=== PATIENT | female | born 1930 | race Asian ===

== ENCOUNTER 2017-08-24 19:07 | Inpatient (IN) | payer OTHER ==
--- NOTE | 2017-08-24 19:18 | EDPHY ---
H & P Time Seen by Provider: 08/24/17 19:08 HPI/ROS: CHIEF COMPLAINT: Syncope, vomiting HISTORY OF PRESENT ILLNESS: This patient is a Belgian-speaking 86 y/o female arriving via EMS with her family following a syncopal episode. This evening, she was eating dinner and began to slump over then fell slowly to the floor from sitting. She did not strike her head. After waking, she vomited. Per EMS report, the patient vomited once more en route. The patient's daughter states the patient complained of fatigue all day today. She is generally on home oxygen in the mornings for hypoxemia of unknown etiology. The patient did have a similar episode three years ago in [place], but her family is unsure what the cause of this was. No recent illness, diarrhea, abdominal pain, chest pain, SOB, urinary complaints, or other associated symptoms. HPI obtained primarily from daughter at bedside, patient is Belgian-speaking only. REVIEW OF SYSTEMS: A 10 point review of systems was performed and is negative with the exception of the elements mentioned in the history of present illness. Past Medical/Surgical History: Asthma Chronic hypoxia, uses home O2 in the mornings Constipation Social History: Family at bedside. Belgian-speaking only. Recently moved to [place]. Physical Exam: General Appearance: Pale, eyes closed, alert Eyes: Pupils equal and round, conjunctival pallor ENT, Mouth: Mucous membranes moist Neck: Normal inspection Respiratory: Rales at bases bilaterally Cardiovascular: Regular rate and rhythm Gastrointestinal: Abdomen is soft and non-tender Neurological: Alert, oriented x3, cranial nerves II through XII intact, motor 5 /5, sensory intact to light touch Skin: Warm and dry Extremities: Normal inspection Psychiatric: Mood and affect normal per family Constitutional: Initial Vital Signs Temperature (C) 36.6 C 08/24/17 19:15 Heart Rate 70 08/24/17 19:15 Respiratory Rate 16 08/24/17 19:15 Blood Pressure 160/82 H 08/24/17 19:15 O2 Sat (%) 93 08/24/17 19:15 O2 Delivery Mode Ventilator O2 (L/minute) 10 Allergies/Adverse Reactions: No Known Allergies Allergy (Unverified 08/24/17 19:25) Home Medications: Medication Instructions Recorded Albuterol [Proventil Inhaler HFA 1 puffs IH Q6HRS PRN 08/24/17 (*)] Ascorbic Acid [Vitamin C 500 mg 1,000 mg PO DAILY 08/24/17 (*)] Beclomethasone Qvar 80 [Qvar 80 1 puffs IH BID 08/24/17 (*)] Docusate Sodium [Colace 100 MG (*)] 100 mg PO BID 08/24/17 Herbals/Supplements -Info Only 1 ea PO AD 08/24/17 Loratadine [Claritin 10 mg] 10 mg PO DAILY 08/24/17 Polyethylene Glycol 3350 [Miralax 17 gm PO DAILY PRN 08/24/17 17 gm (*)] Medical Decision Making - Diagnostics Imaging: I viewed and interpreted images myself ED Course/Re-evaluation: This patient presents with a true syncopal episode, followed by vomiting. Stat EKG reveals a first-degree AV block, without signs of ischemia. Physical exam reveals a normal neurologic exam; there is no evidence of TIA/CVA. More concerning for dysrhythmia. 19:30 as I was interviewing the patient, she began feeling nauseated. She then started vomiting. I looked up at the monitor and her heart rate was in the low 30s. The bradycardia was transient and after the bradycardia resolved, the nausea and vomiting resolved. Blood pressure adequate after the episode. Pacer pads were placed. She was moved to room 2 for closer observation. Repeat EKG is relatively unchanged from initial EKG. Plan for labs including CBC , BMP, Troponin. 19:[address] Blount, hospitalist. He accepts admission to PCU for symptomatic bradycardia. 19:[address] Guillermo, business and marketing teacher. She will consult the patient. Troponin negative. Chest x-ray negative for acute processes, see radiologist report above. 20:48 The patient complained of left shoulder and hip pain to her daughter. Reviewed chest x-ray. No evidence of acute osseous abnormalities. X-ray left hip negative. Differential Diagnosis: Differential diagnosis includes though is not limited to cardiac dysrhythmia, CVA, TIA, GI bleed, sepsis, hypoglycemia. Critical Care Time: I spent a total of 35 minutes of critical care time in obtaining history, performing a physical exam, bedside monitoring of interventions, collecting and interpreting tests and discussion with consultants but not including time spent performing procedures. - Data Points Laboratory Results: Laboratory Results 08/25/17 06:15 01/01/18 06:15 Medications Given: Discontinued Medications Ascorbic Acid (Vitamin C) 1,000 mg PO DAILY [facility] Stop: 02/21/18 08:59 Last Admin: 08/25/17 11:59 Dose: Not Given Beclomethasone Dipropionate (Qvar 80) 1 puffs IH BID [facility] Stop: 02/20/18 20:59 Last Admin: 08/25/17 09:05 Dose: Not Given Docusate Sodium (Colace) 100 mg PO BID [facility] Stop: 02/20/18 20:59 Last Admin: 08/25/17 11:59 Dose: Not Given Etomidate (Etomidate) 34 mg IV ONCE ONE Stop: 08/25/17 10:31 Last Admin: 08/25/17 09:40 Dose: 34 mg Sodium Chloride (Ns) 1,000 mls @ 0 mls/hr IV EDNOW ONE; Wide Open PRN Reason: Protocol Stop: 08/24/17 19:20 Last Admin: 08/24/17 19:29 Dose: 1,000 mls Midazolam HCl (Versed) 1 mg IVP ONCE ONE Stop: 08/25/17 10:01 Last Admin: 08/25/17 12:00 Dose: Not Given Midazolam HCl (Versed) 1 mg IVP ONCE ONE Stop: 08/25/17 10:31 Last Admin: 08/25/17 09:40 Dose: 1 mg Ondansetron HCl (Zofran) 4 mg IVP Q4 PRN PRN Reason: Nausea/Vomiting, Can't Take PO Stop: 02/20/18 20:54 Last Admin: 08/25/17 04:45 Dose: 4 mg Departure - Departure Disposition: [facility] Acute Clinical Impression: Symptomatic bradycardia Syncope Qualifiers: Syncope type: unspecified Qualified Code(s): R55 - Syncope and collapse Condition: Serious Report Scribed for: Gladis Nino Report Scribed by: Minerva Reddy Date of Report: 08/24/17 Time of Report: 19:26 Physician Review and Approval Statement: 08/24/17 19:26 Portions of this note were transcribed by a emergency medical services coordinator. I personally performed a history, physical exam, medical decision making, and confirmed accuracy of information the transcribed note.
[2017-08-24] MEDS ORDERED: NS 1,000 ML IV ONE (19:19)
--- NOTE | 2017-08-24 19:20 | CPEKG ---
Heart Rate: 70 RR Interval: 857 P-R Interval: 268 QRSD Interval: 132 QT Interval: 448 QTC Interval: 484 P [place]: 210 QRS [place]: -9 T Wave [place]: 17 EKG Severity - ABNORMAL ECG - EKG Impression: SINUS OR ECTOPIC ATRIAL RHYTHM EKG Impression: FIRST DEGREE AV BLOCK EKG Impression: IVCD, CONSIDER ATYPICAL RBBB Electronically Signed By: Gil Morin 25-Aug-2017 10:31:39
[2017-08-24 19:29] LABS: PLATELET COUNT 137 10^3/uL (150-400)
--- NOTE | 2017-08-24 19:39 | CPEKG ---
Heart Rate: 73 RR Interval: 822 P-R Interval: 308 QRSD Interval: 132 QT Interval: 452 QTC Interval: 499 P [place]: 251 QRS [place]: -16 T Wave [place]: -33 EKG Severity - ABNORMAL ECG - EKG Impression: SINUS OR ECTOPIC ATRIAL RHYTHM EKG Impression: FIRST DEGREE AV BLOCK EKG Impression: RIGHT BUNDLE BRANCH BLOCK Electronically Signed By: Gil Morin 25-Aug-2017 10:33:40
--- NOTE | 2017-08-24 20:50 | PDGENHP ---
History and Physical - Chief Complaint Syncope - History of Present Illness This 86-year-old [place] Islander female who moved to [place] from [facility] 1-[place]/2 years ago presented to the hospital today after having a syncopal episode. Patient was eating dinner with her family when she lost consciousness and softly fell to the floor. She was out for 1-2 minutes per family. She vomited after waking up. She had a similar episode about 3 years ago while in [facility]. While in the emergency department the patient had another episode of bradycardia which was also associated with nausea vomiting. During the time my exam the patient denies any chest pain. She does have some pain in her back. History Information - Allergies/Home Medication List Allergies/Adverse Reactions: No Known Allergies Allergy (Unverified 08/24/17 19:25) Home Medications: Albuterol [Proventil Inhaler HFA (*)] 1 puffs IH Q6HRS PRN 08/24/17 [Last Taken Unknown] Ascorbic Acid [Vitamin C 500 mg (*)] 1,000 mg PO DAILY 08/24/17 [Last Taken ] Beclomethasone Qvar 80 [Qvar 80 (*)] 1 puffs IH BID 08/24/17 [Last Taken ] Docusate Sodium [Colace 100 MG (*)] 100 mg PO BID 08/24/17 [Last Taken 08/24/17] Herbals/Supplements -Info Only 1 ea PO AD 08/24/17 [Last Taken Unknown] Loratadine [Claritin 10 mg] 10 mg PO DAILY 08/24/17 [Last Taken 08/24/17] Polyethylene Glycol 3350 [Miralax 17 gm (*)] 17 gm PO DAILY PRN 08/24/17 [Last Taken 08/24/17] I have personally reviewed and updated: family history, medical history, social history, surgical history - Past Medical History Additional medical history: Breast cancer, colon cancer, hypertension - Surgical History Additional surgical history: Lumpectomy, colon resection - Family History Additional family history: Reviewed and noncontributory - Social History Smoking Status: Never smoked Alcohol Use: Rarely (small glass of champagne with dinner) Drug Use: None Review of Systems Review of Systems: ROS: 10pt was reviewed & negative except for what was stated in HPI & below Physical Exam Physical Exam: Temp Pulse Resp BP Pulse Ox 36.6 C 64 20 139/68 H 96 08/24/17 19:15 08/24/17 20:26 08/24/17 20:26 08/24/17 20:26 08/24/17 20:26 O2 (L/minute) 2 Constitutional: no apparent distress, appears nourished, not in pain Eyes: PERRL, anicteric sclera, EOMI Ears, Nose, Mouth, Throat: moist mucous membranes, hearing normal, ears appear normal, no oral mucosal ulcers Cardiovascular: regular rate and rhythym, no murmur, rub, or gallop, No edema Respiratory: no respiratory distress, no rales or rhonchi, clear to auscultation Gastrointestinal: normoactive bowel sounds, soft, non-tender abdomen, no palpable masses Genitourinary: no bladder fullness, no bladder tenderness Skin: warm, normal color, no rashes or abrasions, no fluctuance, no induration, No mottled Musculoskeletal: full muscle strength, no muscle tenderness, normal joint ROM, no joint effusions Neurologic: AAOx3, CN II-XII Intact, No facial droop Psychiatric: interacting appropriately, not anxious, not encephalopathic, thought process linear Lymph, Heme, Immunologic: no cervical LAD, no supraclavicular LAD Lab Data & Imaging Review 08/24/17 19:21 08/24/17 19:21 WBC 9.08 10^3/uL (3.80-9.50) 08/24/17 19:21 RBC 4.60 10^6/uL (4.18-5.33) 08/24/17 19:21 Hgb 15.0 g/dL (12.6-16.3) 08/24/17 19:21 Hct 45.6 % (38.0-47.0) 08/24/17 19:21 MCV 99.1 fL (81.5-99.8) 08/24/17 19:21 MCH 32.6 pg (27.9-34.1) 08/24/17 19:21 MCHC 32.9 g/dL (32.4-36.7) 08/24/17 19:21 RDW 12.8 % (11.5-15.2) 08/24/17 19:21 Plt Count 137 10^3/uL (150-400) L 08/24/17 19:21 MPV 9.6 fL (8.7-11.7) 08/24/17 19:21 Neut % (Auto) 53.0 % (39.3-74.2) 08/24/17 19:21 Lymph % (Auto) 38.7 % (15.0-45.0) 08/24/17 19:21 [place] % (Auto) 5.5 % (4.5-13.0) 08/24/17 19:21 Eos % (Auto) 2.0 % (0.6-7.6) 08/24/17 19:21 Baso % (Auto) 0.4 % (0.3-1.7) 08/24/17 19:21 Nucleat RBC Rel Count 0.0 % (0.0-0.2) 08/24/17 19:21 Absolute Neuts (auto) 4.81 10^3/uL (1.70-6.50) 08/24/17 19:21 Absolute Lymphs (auto) 3.51 10^3/uL (1.00-3.00) H 08/24/17 19:21 Absolute Monos (auto) 0.50 10^3/uL (0.30-0.80) 08/24/17 19:21 Absolute Eos (auto) 0.18 10^3/uL (0.03-0.40) 08/24/17 19:21 Absolute Basos (auto) 0.04 10^3/uL (0.02-0.10) 08/24/17 19:21 Absolute Nucleated RBC 0.00 10^3/uL (0-0.01) 08/24/17 19:21 Immature Gran % 0.4 % (0.0-1.1) 08/24/17 19:21 Immature Gran # 0.04 10^3/uL (0.00-0.10) 08/24/17 19:21 Sodium 141 mEq/L (134-144) 08/24/17 19:21 Potassium 4.1 mEq/L (3.5-5.2) 08/24/17 19:21 Chloride 106 mEq/L (97-110) 08/24/17 19:21 Carbon Dioxide 25 mEq/l (22-31) 08/24/17 19:21 Anion Gap 10 mEq/L (8-16) 08/24/17 19:21 BUN 18 mg/dL (7-23) 08/24/17 19:21 Creatinine 1.0 mg/dL (0.6-1.0) 08/24/17 19:21 Estimated GFR 52 08/24/17 19:21 Glucose 109 mg/dL (70-100) H 08/24/17 19:21 Calcium 9.5 mg/dL (8.5-10.4) 08/24/17 19:21 Troponin I < 0.012 ng/mL (0.000-0.034) 08/24/17 19:21 Visualized and Interpreted Chest x-ray results: Yes Chest X-Ray results: no infiltrate, normal, other (Borderline cardiomegaly) Visualized and Interpreted EKG results: Yes EKG additional interpertation: Sinus rhythm rate 73 beats per minute with first- degree AV block and right bundle branch block Assessment & Plan Assessment: This 86-year-old female presenting with: # syncope differential diagnosis includes vasovagal versus sick sinus syndrome/ symptomatic bradycardia -patient will be closely monitored on telemetry with atropine at bedside. Dr. Juliane Guillermo with [facility] has been consulted. -trend troponin -echocardiogram # history of hypertension -she does not appear to be on anti hypertension medications at this time. Will monitor blood pressure Placed in observation for now. Hospital course will depend on further workup.
[2017-08-24] MEDS ORDERED: ALBUTEROL 200 PUFFS/18 GM MDI IH PRN (20:54)
[2017-08-24] MEDS ORDERED: ONDANSETRON 4 MG/2 ML VIAL IVP PRN (20:55)
[2017-08-24] MEDS ORDERED: ACETAMINOPHEN 325 MG TAB PO PRN (20:55)
[2017-08-24] MEDS: BECLOMETHASONE QVAR 80 MDI IH SCH (23:02)
[2017-08-24] MEDS: DOCUSATE SODIUM 100 MG CAP PO SCH (23:34)
[2017-08-25 06:28] LABS: PLATELET COUNT 117 10^3/uL (150-400)
[2017-08-25] MEDS ORDERED: IOPAMIDOL (ISOVUE 370) 100 ML BTL IV ONE (08:44)
[2017-08-25] MEDS ORDERED: ASCORBIC ACID 500 MG TAB PO SCH (09:00)
[2017-08-25] MEDS: BECLOMETHASONE QVAR 80 MDI IH SCH (09:05)
--- NOTE | 2017-08-25 09:13 | GCON ---
[f rep st] CONSULTATION Bradycardia. HISTORY OF PRESENT ILLNESS: The patient came into the hospital last night and had been complaining o f syncope. She had had syncope 3 weeks ago and then had a syncopal episode on the day of admission. She was eating with her family according the records when she lost consciousness and fell to the dennys or calmly. In 1-2 minutes, she came back and she had woken. She had vomited. She also had another episode according to the record 3 years ago. She had a bradycardia in the emergency room that was as sociated with some nausea as well. She has no chest pain or shortness of breath or other complaints. This morning, I have come in to see her and she is not responding and she is moving her left arm less than she is moving her right arm. There was a little bit of motion when I first came in the room, b ut then we tried to arouse her and it appears she is really not moving her left side much at all and she is not really arousable. The rest of the history has to come from the medical record as the patient is not responding right no w. What we do know is that her medications include albuterol, ascorbic acid, beclomethasone and then ove [id number] medications only. She only speaks Montenegrin. PAST HISTORY: Positive for asthma, for constipation and she uses oxygen in the mornings. REVIEW OF SYSTEMS: Negative except as noted above for 10 points as is available. We will get more i nformation later. done review of systems and evaluated the patient with the family present . Had no other comments to make about significant past medical history. ALLERGIES: No allergies known. MEDICATIONS: Albuterol, ascorbic acid, beclomethasone, Colace, herbal supplements, Claritin. SOCIAL HISTORY: She moved here to be with family. She is Montenegrin speaking only. PHYSICAL EXAMINATION: VITAL SIGNS: Her heart rate this morning is 100. Her blood pressure is 92/63 . Her heart rate has been 64 at 2300, at 3 in the morning 77, at 8 o'clock in the morning 91. Her r espiratory rate is 14. GENERAL: She is comfortable in the hospital bed. She is not able to be arou sed and she is moving her left side at this point, not at all independently. Her right arm is moving and her right leg is moving and she is not arousable. HEENT: No tenderness to the head. CARDIOVAS CULAR: S1, S2. Soft systolic murmur at left sternal border. No diastolic murmur. No S3, S4. No r ubs. PULMONARY: Rhonchi. No rales, wheezing or dullness. ABDOMEN: Soft, nontender, without fabian s. EXTREMITIES: No significant edema. She is not moving her left side well and she is not arousabl e. White count 10.9, hematocrit 46, platelets 117. Sodium 144, potassium 4.0, chloride 105, CO2 of 22, BUN 20, creatinine 1.1, glucose 247 this morning. Her troponins have been 0.012, 0.012, 0.016. Her monitor has shown some Wenckebach and there are dropped P waves. There are P waves with no QRS a fter them. ASSESSMENT AND PLAN: 1. Syncope. The patient is having second-degree heart block and she has had multiple episodes of sy ncope. At this point, depending on how her general medical condition is, we would proceed for a maryjane ent like this if her prognosis is acceptable and the family agrees with a pacemaker. Ever since she has been in the hospital, she has not had any significant sandy arrhythmias. We will make her n.p.o. in case we are going to put in a pacemaker tomorrow. She has nothing to suggest an acute coronary s yndrome, congestive heart failure. She has not had atrial fibrillation while she has been here. We will watch her closely. 2. Unresponsiveness. She is not responding well and she is not moving her left side apparently very well. Now it is hard to tell because she is not responding, but she is moving her right side more t dominguez her left side, so a stroke alert has been called and she will be evaluated very carefully. 3. I do not know her code status, but this is something that will have to be [facility]. 4. History of asthma. 5. Incomplete database. We will get more information when the family is available. /[id number]/MODL
[2017-08-25 09:18] VITALS: TEMP 95.9
--- NOTE | 2017-08-25 09:44 | NEUROPROG ---
- Problem (1) Stroke Plan: [facility] Demographics Consult Type Acute Stroke First Name Yolette Last Name Arsen Date of 02/11/1931 Age: 86 Gender Female Time of initial page (): 08/25/2017 09:26 Time of return call (): 08/25/2017 09:27 Time Ready to Initiate Telemed Consult (): 08/25/2017 09:28 HPI Additional History (Free Text): 86yo who was admitted last evening with syncope. She was last seen normal at 6AM today when the nurse was drawing labs. She then was found later with left sided weakness and decreased responsiveness. [facility] Social History: full code Exam Vitals: vital signs reviewed SBP: 118 DBP: 80 NIHSS Time (): 08/25/2017 09:32 LOC 1a: 2 = Not alert; requires repeated stimulation to attend, or is obtunded and requires strong or painful stimulation to make movements LOC 1b: 2 = Answers neither questions correctly LOC Commands: 2 = Performs neither task correctly Best Gaze: 1 = Partial gaze palsy; gaze is abnormal in one or both eyes, but forced deviation or total gaze paresis is not present Visual: 0 = No visual loss Facial Palsy 1 = Minor paralysis (flattened nasolabial fold, asymmetry on smiling) Motor Arm L: 3 = No effort against gravity; limb falls Motor Arm R: 0 = No drift; limb holds 90 (or 45) degrees for full 10 seconds Motor Leg L: 3 = No effort against gravity; leg falls to bed immediately Motor Leg R: 0 = No drift; leg holds 30-degree position for full 5 seconds Limb Ataxia 0 = Absent Sensory: 1 = Otra-bt-fqkmldaj sensory loss; patient feels pinprick is less sharp or is dull on the affected side, but patient is aware of being touched Best Language: 3 = Mute, global aphasia; no usable speech or auditory comprehension Dysarthria: 2 = Severe dysarthria; patient's speech is so slurred as to be unintelligible Extinction + Inattention: 2 = Profound alok-inattention or extinction to more than one modality; NIHSS: [address]: no bleed CTA Head MCA occlusion, right CTA Neck occlusion, right CCA Assessment Assessment: Acute Ischemic Stroke, right MCA syndrome Plan Lytic/Intervention: IA intervention tPA Exclusion (3-4.5hr window) Age>80 Target Blood Pressure: SBP>140 for now Labs Comprehensive metabolic panel, ESR, HgbA1c, Lipid Panel, UDS Imaging MRI brain without Diagnostic test echocardiogram with bubble Therapy/Eval NPO until cleared by swallow evaluation, PT/OT, Speech/Swallow therapy consult VTE Prophylaxis SCD, Heparin 5000 units subcutaneously q 12 hours Other LDL goal less than 70, permissive HTN, telemetry monitoring, I have discussed my recommendations with the referring provider Additional Recommendations: 1. would transfer for IA therapy consideration Disposition transfer for IA therapy consideration. Arrangements are being made to transfer to [facility] (2) Stroke (cerebrum) Objective: Vital Signs Temp Pulse Resp BP Pulse Ox 35.5 C L 107 H 26 H 110/65 89 L 08/25/17 09:16 08/25/17 09:16 08/25/17 09:16 08/25/17 09:16 08/25/17 09:16 Laboratory Results 08/25/17 06:15 08/25/17 06:15 08/24/17 08/25/17 08/26/17 05:59 05:59 05:59 Intake Total 300 Output Total 350 Balance -50 Allergies/Adverse Reactions: No Known Allergies Allergy (Unverified 08/24/17 19:25)
[2017-08-25] MEDS ORDERED: MIDAZOLAM 2 MG/2 ML VIAL IVP ONE ×2 (10:00→10:30)
[2017-08-25] MEDS ORDERED: NOREPINEPHRINE/NS 4 MG/500 ML BAG IV ONE (10:05)
[2017-08-25] MEDS ORDERED: ETOMIDATE 40 MG/20 ML INJ IV ONE (10:30)
[2017-08-25 11:23] VITALS: PULSE 108; O2SAT 88
[2017-08-25] MEDS: DOCUSATE SODIUM 100 MG CAP PO SCH (11:59)
[2017-08-25 12:03] VITALS: BP 118/80; RESP 26
--- NOTE | 2017-08-25 16:50 | HOSPPROG ---
Hospitalist Progress Note Assessment/Plan: * Acute stroke - called by nursing this am that patient newly unresponsive with new left hemiparesis. Night RN contacted - she adwoa labs at 6:00 am and patient was completely responsive and moving all extremities at that time. Stroke alert called. Head CT without bleed. CTA head/neck with massive thrombus on right from common carotid all the way up to MCA. [facility] neurology at [facility] consulted. Not a systemic tpa candidate because outside 3 hour window. She is candidate however for intra-arterial intervention with IR at [facility]. Patient transferred to [facility] for consideration. Unable to go in helicopter due to fog. Patient emergently transferred via ground. * Acute respiratory failure - evaluator images on head CT revealed patient had aspirated her dentures and she developed upper airway obstruction. Difficult removal due to patient's clenched jaw. ER physician attempted removal and was unsuccessful. I consulted Dr. Gonzales. Patient sedated and dentures successfully removed with sedation. Patient endotracheally intubated. * Hypotension - post intubation BP dropped. Femoral central line placed by Dr. Gonzales. Pressors started prior to transfer. Goal SBP > 140 CC time spent - 90 minutes Objective: Vital Signs Temp Pulse Resp BP Pulse Ox 35.5 C L 108 H 26 H 118/80 88 L 08/25/17 09:16 08/25/17 12:02 08/25/17 12:02 08/25/17 12:02 08/25/17 12:02 Laboratory Results 08/25/17 06:15 08/25/17 06:15 08/24/17 08/25/17 08/26/17 05:59 05:59 05:59 Intake Total 300 Output Total 350 Balance -50 - Physical Exam Constitutional: other (completely unresponsive to sternal rub, no seizure activity noted) Eyes: PERRL, anicteric sclera Cardiovascular: regular rate and rhythym, no murmur, rub, or gallop Respiratory: no respiratory distress, no rales or rhonchi, clear to auscultation Gastrointestinal: normoactive bowel sounds, soft, non-tender abdomen, no palpable masses Skin: no rashes or abrasions, no fluctuance, no induration Neurologic: weakness (left sided, some withdrawal but less than right), facial droop (left), No AAOx3 Psychiatric: encephalopathic, other (difficult to arouse, clenched jaw), No interacting appropriately, No agitated ICD10 Worksheet Patient Problems: Problems Problem Status Onset Stroke Acute Stroke (cerebrum) Acute Symptomatic bradycardia Acute Syncope Acute
--- NOTE | 2017-08-25 18:15 | GDS ---
[f rep st] DISCHARGE SUMMARY DISCHARGE DIAGNOSES: 1. Acute stroke with left hemiparesis. 2. 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 3. Acute respiratory failure. 4. Upper airway obstruction due to aspiration of dentures. 5. Hypotension. HISTORY: The patient is an 86-year-old female, who was admitted last evening after a self-limited pe riod of unresponsiveness lasting approximately 2 minutes with associated syncope. She did not injure herself during the syncopal event and fell softly to the floor. She was noted to have bradycardia a nd was being admitted for consideration of pacemaker placement by Cardiology. This morning she had a n acute mental status change. She became acutely unresponsive with left-sided hemiparesis noted. St roke protocol was initiated, and stat head CT was negative for acute bleed. CT angiogram of the head and neck showed a thrombus from her right carotid artery all the way up through the middle cerebral artery. [facility] was consulted. She was not a systemic tPA candidate because s he was outside of the 3-hour window, although we did confirm with the night nurse that she did a bloo d draw at 6:00 a.m., and the patient had a normal mental status. Her stroke alert was approximately 8:30 a.m., and by the time Neurology was involved the 3-hour window had passed. She is, however, a c andidate for intra-arterial intervention with Interventional Radiology at [facility], and she was transf erred emergently. We were unable to fly her via helicopter due to fog, and she was transferred emerg ently via ground. She was also noted on her CT scan to have aspirated her dentures, causing upper airway obstruction. Dr. Gonzales was emergently consulted and was able to remove the dentures with sedation. She was subseq uently endotracheally intubated. After intubation, she became hypotensive, and a central line was pl aced and pressors initiated with a goal systolic blood pressure greater than 140 for transfer. The patient was transferred to [facility] under the direction of Dr. Heraclio Isaac. Greater than 30 minutes time spent on this discharge with 90 minutes of critical care time. /[id number]/MODL
--- NOTE | 2017-08-25 18:35 | GCON ---
[f rep st] CONSULTATION CRITICAL CARE CONSULT DATE OF CONSULTATION: 08/25/2017 HISTORY OF PRESENT ILLNESS: This patient is an 86-year-old Azeri female who had a few medical pro blems and moved to [place] from [facility] about a year and a half ago. She was admitted to [facility] late yes terday after a syncopal episode. She was eating dinner with her family and she slumped to the floor without any trauma. Apparently had a similar episode about 3 years ago while in [facility]. In the emerg ency department, she was found to have bradycardia, which is quite symptomatic including near-syncope and emesis. She was evaluated by Cardiology and admitted to the hospital for further evaluation. T his morning, she was seen and appeared to be normal at about 6 a.m. but, shortly after that, was foun d unresponsive and unable to move her left side. A stroke alert was called. She was taken to the CT scanner where a head CT showed no definite infarct but old infarcts in the right frontal lobe, right occipital lobe and right cerebellar hemisphere. However, CT angiogram showed severe extensive acute thrombus involving the right brachiocephalic artery, right common carotid artery, right internal car otid artery, right subclavian artery and right vertebral artery with complete thrombosis of the right common carotid artery to the level of the bifurcation of the internal carotid artery. Of note, the patient was also mildly hypoxic and apparently had her dentures fall into the posterior pharynx. She was evaluated by the emergency department while in the CT scanner but they were unable to retrieve t he dentures. She was subsequently moved to the intensive care unit where I conversed with Dr. Heraclio Isaac of [facility]. We collectively decided to intubate her for airway protection while, a t the same time, retrieving the dentures. The intubation was unremarkable though she was hypotensive afterwards requiring emergent placement of a right femoral vein central line. These procedures were dictated under separate cover. The patient was relatively stabilized. She did require some Levophe d. Her oxygenation was marginal. A chest x-ray showed adequate placement of the endotracheal tube b ut some mild right lower lobe infiltrates. Because of the severity of her vascular disease, however, she was transported by air flight to the [facility] for ongoing therapy. REVIEW OF SYSTEMS: Otherwise, negative to best of my knowledge. HOME MEDICATIONS: Include only albuterol, vitamin C, Qvar, docusate, herbal supplements, Claritin an d MiraLAX. PAST MEDICAL HISTORY: Probably asthma, breast cancer, colon cancer and hypertension. PAST SURGICAL HISTORY: Includes a lumpectomy and colon resection in the past. FAMILY HISTORY: Noncontributory. SOCIAL HISTORY: She is a nonsmoker and drinks rare alcohol if any. PHYSICAL EXAMINATION: VITAL SIGNS: When she landed in the intensive care unit, her heart rate was 8 9. Her blood pressure was 110/60. Respirations of 15. Oxygen saturation was 85% on a non-rebreathe r. This improved to 93% after intubation. GENERAL: She was somnolent and unable to answer any ques tions without using any accessory muscles for breathing. HEENT: Her pupils were about 3 mm, reactiv e, without any fixed gaze. Sclerae were noninjected. Mucous membranes were moist. Her upper dentur es were in her posterior pharynx. This required direct laryngoscopy and removal with Bev forceps as described under separate procedural dictation. NECK: Otherwise, supple without adenopathy. LUNG S: Breath sounds were clear to auscultation bilaterally without wheezes, rubs or rales. HEART: Reg ular rate and rhythm without murmurs, rubs, gallops. ABDOMEN: Soft, nontender, nondistended without hepatosplenomegaly. EXTREMITIES: No clubbing, cyanosis, or edema. NEURO: She withdrew to pain in her right upper extremity and bilateral lower extremities, but not in her left upper extremity. Her cranial nerves appeared to be intact. There did not appear to be any facial droop. Her gag reflex was suppressed but not absent. She did have some coughing during the procedures. LABORATORY: Includes that as described above. In addition, her white count was 10.9, hematocrit 46, platelets of 117. Basic metabolic panel was unremarkable. ASSESSMENT/PLAN: 1. Acute stroke. As mentioned above, she is going to be transferred to [facility] for [facility] management of this severe problem. I did discuss briefly with her family the procedural parts of the intubation. They requested a full court press though her survival is certainly in question a t this point. 2. Acute respiratory failure due to lack of airway protection. She may have even aspirated given th e infiltrates. The dentures were easily retrieved from the posterior pharynx using Bev forceps. Her oxygenation is somewhat marginal, though her blood pressure is low. That may be part of it. In addition, her initial blood gas showed a low pH and this may have shifted her oxyhemoglobin dissociat ion curve. Her PO2 was 66, but her FiO2 was 100% and 10 of PEEP. In either case, further management will be per the critical care teams at [facility]. 3. Hypotension. She is likely hypovolemic. She was getting fluid while she was in the intensive ca re unit here. Because of her low pH which was associated with a metabolic (not respiratory) acidosis , I gave her an amp of bicarbonate. Her Levophed dose dropped from about 20-13. She seems to be natalie erating this well. Fluids are going at the time of transport. I see no evidence of bleeding. Altho ugh septic shock may be a part of the differential, I do not believe that to be the case at this time . I also do not currently believe there is an acute coronary syndrome, but this will require further workup including an EKG when she arrives as well as serial troponins. An adrenal event is also high ly unlikely at this time. 4. Symptomatic bradycardia. There have been no bradycardic episodes during my time with her in the intensive care unit. I will leave that to Cardiology for further management. A total of about 2 hours of critical care time was required in the evaluation and management of this patient separate from procedures. /[id number]/MODL
--- NOTE | 2017-08-25 18:55 | GPN ---
[f rep st] PROCEDURE NOTE DATE OF PROCEDURE: 08/25/2017 PROCEDURE: Emergent intubation and removal of foreign body. INDICATION: Respiratory failure. ANESTHESIA: Conscious sedation was achieved using 1 mg of Versed, 20 mg of IV etomidate. The patien t tolerated these well without obvious complications. DESCRIPTION OF PROCEDURE: Consent was waived due to the emergent nature of the procedure. After the initiation of conscious sedation, the patient was placed in the sniff position. A MAC 4 di rect laryngoscopy was used to identify dentures in the posterior pharynx. These were easily removed using the Juanpablo forceps. Subsequently, her vocal cords were well visualized with a little bit of cr icoid pressure and a 7.0 endotracheal tube was placed on the first attempt without difficulty. There was appropriate condensation in the endotracheal tube. There were equal breath sounds bilaterally w ithout sounds in the stomach. There was appropriate color change and the oxygen saturation improved. A postprocedure chest x-ray showed the tube to be in excellent position. There were no immediate c omplications to the procedure, though she did have hypotension subsequently, which is described in de tail in the original consult. /[id number]/MODL
--- NOTE | 2017-08-25 19:30 | GPN ---
[f rep st] PROCEDURE NOTE DATE OF PROCEDURE: 08/25/2017 PROCEDURE PERFORMED: Central line placement. INDICATIONS: Hypotension. CONSENT: Consent was waived due to the emergent nature of the procedure. DESCRIPTION OF PROCEDURE: Using ultrasound guidance, the right femoral vein was visualized and cannu lized under Seldinger technique on the first attempt. The wire passed easily and a triple-lumen cath eter was placed without difficulty, sutured in place, and the dressing was placed per the Nursing sta ff. There were no obvious complications. /[id number]/MODL
--- NOTE | 2017-08-26 09:34 | ASDISCHSUM ---
Discharge Information Plan Status:Acute Transfer Medically Cleared to Leave:08/24/2017 Discharge Date:08/25/2017 10:58 AM CM D/C Disposition:[facility] ADT D/C Disposition:[facility] Projected Discharge Date:08/25/2017 12:00 AM Transportation at D/C:ALS/BLS Discharge Delay Reason: Follow-Up Date:08/25/2017 12:00 AM Discharge Slot: Final Diagnosis:Acute stroke Placement Information Patient Contact Information Contact Name:MARY GRACE Relationship:Other Address:[address] Work Phone: [place] [facility] Alternate Phone: [facility]/Zip Code:[place] [address] Email: Financial Information Financial Class:Self-Pay Primary Plan Desc:SELF PAY Primary Plan Number: Secondary Plan Desc: Secondary Plan Number: Assessment Information Case Management Discharge Plan Note Case Management Discharge Discharge Order Complete? Answers: Yes Patient to Obtain Answers: Other Notes: [facility] Medications Transportation Arranged Answers: [facility] Transport will Pick (Date 08/25/2017 12:00 AM & Time) EMTALA Complete Answers: Yes Case Management Transport Answers: Yes Form Complete Faxed Final Orders Answers: No Notes: Reports sent w/patient Agency/Facility Transfer Answers: No Notes: Sent with patient Report Printed & Faxed to Receiving Agency Family Notified Answers: Yes Discharge Comments Notes: 86 year old female admitted for an acute stroke. Needs to be transferred to [facility]. Records copied. Date Signed: 08/25/2017 10:03 AM Electronically Signed By:Tosha Naqvi LCSW Intervention Information
--- NOTE | 2017-08-26 13:29 | PDMN ---
Medical Necessity Medical necessity: Patient meets inpatient criteria per physician note and [facility] M -83 Stroke: Ischemic (patient was initially admitted as OBS for bradycardia and syncope, was NPO for likely pacer placement, then stroke alert called the following morning after patient was found minimally responsive w/L sided weakness. Severe extensive thrombus found involving R brachiocephalic, R common carotid, R ICA, R subclavian and vertebral arteries; acute respiratory failure and upper airway obstruction w/dentures; intubated; transferred to [facility] for likely intra-arterial intervention by IR.). .
== END 2017-08-25 10:58 | disposition short-term general hospital (02) | DRG 64 ==
LOC: INTOOBSV 19:38 → F2W 21:15 → F2N 08-25 09:11 → OBSVTOIN 08-25 10:00
PROVIDERS: ADMIT Family Medicine; ATTEND Internal Medicine
PROC: 0BH17EZ Insertion of Endotracheal Airway into Trachea, Via Natural or Artificial Opening (ICD-10-PCS; principal; 2017-08-25)
PROC: 02HV33Z Insertion of Infusion Device into Superior Vena Cava, Percutaneous Approach (ICD-10-PCS; 2017-08-25)
PROC: 0CCM8ZZ Extirpation of Matter from Pharynx, Via Natural or Artificial Opening Endoscopic (ICD-10-PCS; 2017-08-25)
DX: I63.031 Cerebral infarction due to thrombosis of right carotid artery (principal); J96.01 Acute respiratory failure with hypoxia; I95.81 Postprocedural hypotension; R00.1 Bradycardia, unspecified; T18.0XXA Foreign body in mouth, initial encounter; Y92.239 Unspecified place in hospital as the place of occurrence of the external cause; I82.290 Acute embolism and thrombosis of other thoracic veins; I65.01 Occlusion and stenosis of right vertebral artery; E87.2 Acidosis; R29.722 NIHSS score 22; I44.1 Atrioventricular block, second degree; I45.10 Unspecified right bundle-branch block; J45.909 Unspecified asthma, uncomplicated; R55 Syncope and collapse; M25.552 Pain in left hip; K59.00 Constipation, unspecified; I10 Essential (primary) hypertension; Z85.3 Personal history of malignant neoplasm of breast; Z85.038 Personal history of other malignant neoplasm of large intestine; Z86.73 Personal history of transient ischemic attack (TIA), and cerebral infarction without residual deficits
CPT/HCPCS: G0378; J2250; J2405; Q9967